=== PATIENT | male | born 1985 | race Caucasian/White ===

== ENCOUNTER 2017-05-04 10:24 | Emergency (ER) | payer OTHER ==
[2017-05-04 10:35] VITALS: BP 126/71; PULSE 59; TEMP 97.7; BMI 31.3
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
[2017-05-04 12:13] LABS: BASO % 0.4 % (0-2.0); EOS % 3.4 % (0-4.5); HEMATOCRIT 46.5 % (35.4-49); HEMOGLOBIN 15.6 GM/dL (11.7-16.9); LYMPH % 31.5 % (8-40); MCH 28.2 pg (25.7-33.7); MCHC 33.5 g/dl (32.0-35.9); MEAN CELL VOLUME 84.2 fl (80-96); MEAN PLT VOLUME 8.1 fl (7.5-11.1); MONO % 8.6 % (3.8-10.2); NEUT % 56.1 % (42.8-82.8); PLATELET COUNT 253 K/MM3 (134-434); RBC 5.52 M/mm3 (4.00-5.60); RDW 13.5 % (11.9-15.9); WHITE BLOOD COUNT 4.3 K/mm3 (4.0-10.0)
[2017-05-04 12:46] LABS: ALBUMIN 4.1 g/dl (3.4-5.0); ANION GAP 3 (8-16); BILIRUBIN,TOTAL 0.5 mg/dL (0.2-1.0); BLOOD UREA NITROGEN 20 mg/dL (7-18); CALCIUM 9.1 mg/dL (8.5-10.1); CHLORIDE 106 mmol/L (98-107); CHOLESTEROL 180 mg/dL (50-200); CO2 31 mmol/L (21-32); CREATININE 1.1 mg/dL (0.7-1.3); GLUCOSE,RANDOM 96 mg/dL (74-106); LDH 187 U/L (87-241); PHOSPHOROUS 3.5 mg/dL (2.5-4.9); POTASSIUM 4.6 mmol/L (3.5-5.1); SGOT/AST 16 U/L (15-37); SGPT/ALT 18 U/L (12-78); SODIUM 140 mmol/L (136-145); URIC ACID 4.1 mg/dL (2.6-7.2)
[2017-05-04 12:47] LABS: ALK PHOS 89 U/L (45-117); TRIGLYCERIDES 68 mg/dL (35-160)
[2017-05-05 08:06] LABS: HBsAG SCREEN Negative (Negative); HEPATITIS B CORE ANTIBODY Negative (Negative)
== END 2017-05-04 11:45 | disposition home or self-care (01) ==
LOC: JERFT 10:24
DX: Z77.21 Contact with and (suspected) exposure to potentially hazardous body fluids (principal); S60.411A Abrasion of left index finger, initial encounter; Y35.811A Legal intervention involving manhandling, law enforcement official injured, initial encounter; Y93.89 Activity, other specified; Y92.89 Other specified places as the place of occurrence of the external cause; Y99.0 Civilian activity done for income or pay
CPT/HCPCS: 36415; 80053; 82465; 83615; 84100; 84478; 84550; 85025; 86704; 87340; 87389; 99281-25

== ENCOUNTER 2017-05-04 12:04 | Emergency (ER) | payer OTHER ==
[2017-05-04 12:21] VITALS: BP 134/71; PULSE 62; TEMP 98; BMI 31.3
[2017-05-04] MEDS ORDERED: HIV POST EXPOSURE PROPHYLAXIS KIT NR ONE (12:22)
[2017-05-04] MEDS ORDERED: HIV POST EXPOSURE PROPHYLAXIS KIT PO ONE (12:26)
--- NOTE | 2017-05-04 12:30 | PDOC ---
Post Exposure HPI - General Stated Complaint: REVISIT,LABS/YPD Time Seen by Provider: 05/04/17 12:20 History Source: Patient - History of Present Illness Timing: this morning Exposed Location: Left: Finger(s) Past History - Past Medical History Allergies/Adverse Reactions: Allergies Allergy/AdvReac Type Severity Reaction Status Date / Time esomeprazole [From Nexium] Allergy Hives Verified 05/04/17 12:20 Home Medications: Ambulatory Orders NK [No Known Home Medication] 05/04/17 COPD: No GI Disorders: Yes (GERD) - Suicide/Smoking/Psychosocial Hx Smoking History: Never smoked Have you smoked in the past 12 months: Yes Information on smoking cessation initiated: No Hx Alcohol Use: No Drug/Substance Use Hx: No Review of Systems - Review of Systems Constitutional: No: Chills, Fever *Physical Exam - Vital Signs Last Vital Signs Temp Pulse Resp BP Pulse Ox 98.0 F 62 16 134/71 100 05/04/17 12:19 05/04/17 12:19 05/04/17 12:19 05/04/17 12:19 05/04/17 12:19 - Physical Exam General Appearance: Yes: Appropriately Dressed. No: Apparent Distress HEENT: positive: Normal Voice Respiratory/Chest: negative: Respiratory Distress Extremity: positive: Other (dressing intact to L index) Medical Decision Making - Medical Decision Making 05/04/17 12:23 32-year-old male, works for the [employer], seen here less than an hour ago for evaluation after exposure while at work today. Baseline blood work and PEP was offered to patient, who ultimately declined meds. States after he left ED, he contacted several friends who urged him to return for medication and so patient is back in ED for PEP. Ist dose PEP given in ED. Pt sent home w/ 30 day supply truvada and 5 day supply of isentress to f/u in [place] this week 05/04/17 12:31 *DC/Admit/Observation/Transfer Diagnosis at time of Disposition: Exposure to blood - Discharge Dispostion Disposition: HOME Condition at time of disposition: Good - Referrals - Patient Instructions Additional Instructions: Please take medications as directed. You need to follow up in [place] this week for additional prescription for HIV meds as you will need to be on medication for 28 days. You were given a 5 day supply today. Please call [phone] for an appointment - Post Discharge Activity
== END 2017-05-04 12:43 | disposition home or self-care (01) ==
LOC: JERFT 12:04 → JER 12:04 → JERFT 12:43
DX: Z77.21 Contact with and (suspected) exposure to potentially hazardous body fluids (principal); Y35.811D Legal intervention involving manhandling, law enforcement official injured, subsequent encounter
CPT/HCPCS: 99281-25

== ENCOUNTER 2018-05-14 07:10 | Emergency (ER) | payer OTHER ==
[2018-05-14 07:50] VITALS: BP 120/72; PULSE 67; TEMP 98.5; BMI 31.3
[2018-05-14] MEDS ORDERED: IBUPROFEN 600 MG TABLET (FP) PO ONE ×2 (08:34→09:00)
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
== END 2018-05-14 10:14 | disposition home or self-care (01) ==
LOC: JER 07:10
DX: S43.401A Unspecified sprain of right shoulder joint, initial encounter (principal); Y35.811A Legal intervention involving manhandling, law enforcement official injured, initial encounter; Y93.89 Activity, other specified; Y92.89 Other specified places as the place of occurrence of the external cause; Y99.0 Civilian activity done for income or pay
CPT/HCPCS: 73030-TC-RT-FY; 99281-25

== ENCOUNTER 2018-12-04 09:46 | Emergency (ER) | payer OTHER ==
[2018-12-04 09:54] VITALS: BP 127/76; PULSE 62; TEMP 98.3; BMI 31.3
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
== END 2018-12-04 10:27 | disposition home or self-care (01) ==
LOC: JERFT 09:46
DX: S60.511A Abrasion of right hand, initial encounter (principal); Y35.891A Legal intervention involving other specified means, law enforcement official injured, initial encounter; V88.8XXA Person injured in other specified noncollision transport accidents involving motor vehicle, nontraffic, initial encounter; Y92.414 Local residential or business street as the place of occurrence of the external cause; Y93.89 Activity, other specified; Y99.0 Civilian activity done for income or pay
CPT/HCPCS: 73130-TC-RT-FY; 99281-25

== ENCOUNTER 2021-05-28 14:08 | Emergency (ER) | payer OTHER ==
[2021-05-28 14:23] VITALS: BP 129/71; PULSE 83; TEMP 98; BMI 36.0
== END 2021-05-28 14:37 | disposition home or self-care (01) ==
LOC: FER 14:08
DX: M54.89 Other dorsalgia (principal)
CPT/HCPCS: 99282-25

== ENCOUNTER 2021-06-17 12:59 | Emergency (ER) | payer OTHER ==
[2021-06-17 13:09] VITALS: BP 133/80; PULSE 65; TEMP 97.8; BMI 36.0
[2021-06-17] MEDS ORDERED: KETOROLAC TROMETHAMINE 15 MG/ML VIAL IM ONE (14:00)
[2021-06-17] MEDS ORDERED: KETOROLAC TROMETHAMINE 15 MG/ML VIAL ONE (14:03)
== END 2021-06-17 14:13 | disposition home or self-care (01) ==
LOC: FER 12:59
PROC: 3E023GC Introduction of Other Therapeutic Substance into Muscle, Percutaneous Approach (ICD-10-PCS; principal; 2021-06-17)
DX: M25.511 Pain in right shoulder (principal)
CPT/HCPCS: 73030-TC-RT-FY; 99284-25

== ENCOUNTER 2022-03-16 12:00 | Emergency (ER) | payer OTHER ==
[2022-03-16 12:41] VITALS: BP 136/92; PULSE 69; RESP 15; TEMP 97.9; BMI 33.4
[2022-03-16 15:02] LABS: OPIATES, URI NEGATIVE (NEGATIVE)
[2022-03-16 15:03] LABS: PHENCYCLIDINE,URINE NEGATIVE (NEGATIVE); URINE BENZODIAZEPINES NEGATIVE (NEGATIVE)
[2022-03-16 15:04] LABS: COCAINE, UR NEGATIVE (NEGATIVE); METHADONE, UR NEGATIVE (NEGATIVE); URINE AMPHETAMINES NEGATIVE (NEGATIVE); URINE BARBITURATES NEGATIVE (NEGATIVE)
[2022-03-17 08:09] LABS: COCAINE QUALITATIVE URINE Negative ng/mL (Cutoff=300); MARIJUANA QL URINE CANNABINOID Negative ng/mL (Cutoff=50); METHADONE,QUALITATIVE URINE Negative ng/mL (Cutoff=300); OPIATES QL URINE Negative ng/mL (Cutoff=300); PHENCYCLIDINE,QUAL URINE Negative ng/mL (Cutoff=25); PROPOXYPHENE QL URINE Negative ng/mL (Cutoff=300); URINE AMPHETAMINES Negative ng/mL (Cutoff=1000)
== END 2022-03-16 13:21 | disposition home or self-care (01) ==
LOC: FER 12:00
DX: R42 Dizziness and giddiness (principal)
CPT/HCPCS: 36415; 80307; 82375; 93005; 99283-25; 99284-25

== ENCOUNTER 2022-11-26 09:18 | Emergency (ER) | payer OTHER, BC ==
[2022-11-26 09:27] VITALS: BP 129/85; PULSE 75; RESP 18; TEMP 97.3; BMI 33.6
== END 2022-11-26 10:33 | disposition home or self-care (01) ==
LOC: FER 09:18
DX: Z77.21 Contact with and (suspected) exposure to potentially hazardous body fluids (principal)
CPT/HCPCS: 99282-25

== ENCOUNTER 2024-02-04 11:33 | Emergency (ER) | payer OTHER, BC ==
[2024-02-04 11:38] VITALS: BP 116/70; PULSE 70; RESP 18; TEMP 97.5; BMI 34.4
[2024-02-04] MEDS ORDERED: IBUPROFEN 400 MG TABLET (FP) PO ONE (12:42)
[2024-02-04] MEDS: IBUPROFEN 400 MG TABLET (FP) PO ONE (12:43)
== END 2024-02-04 13:41 | disposition home or self-care (01) ==
LOC: FER 11:33
DX: M25.562 Pain in left knee (principal); Y04.0XXA Assault by unarmed brawl or fight, initial encounter; Y35.811A Legal intervention involving manhandling, law enforcement official injured, initial encounter
CPT/HCPCS: 73562-TC-LT-FY; 99283-25